=== PATIENT | female | born 1950 | race Caucasian/White ===

== ENCOUNTER 2023-12-31 13:18 | Inpatient (IN) | payer MEDICARE, BC ==
[~2023-12-31] VITALS: Ht 165.1 cm; Wt 59.0 kg
[2023-12-31 16:00] VITALS: BP 114/74; TEMP 97.9; O2SAT 98
[2023-12-31] MEDS ORDERED: MAG HYDROX/AL HYDROX/SIMETH 30 ML UDC PO PRN (16:30)
[2023-12-31] MEDS ORDERED: clonazePAM 0.5 MG TABLET PO PRN (16:30)
[2023-12-31] MEDS ORDERED: MAGNESIUM HYDROXIDE 30 ML UDC PO PRN (16:30)
[2023-12-31] MEDS ORDERED: ATOR20TA PO (16:49)
[2023-12-31] MEDS ORDERED: CHOL400T PO (16:49)
[2023-12-31] MEDS ORDERED: PROP80TA4 PO (16:49)
[2023-12-31] MEDS ORDERED: MULT-213 PO (16:49)
[2023-12-31] MEDS ORDERED: OXYB10TA30 PO (16:49)
[2023-12-31] MEDS ORDERED: L.AC1CAP6 PO (16:49)
[2023-12-31] MEDS: BLOOD SUGAR DIAGNOSTIC 1 EACH STRIP IN ONE (17:23)
[2023-12-31] MEDS: CHLORDIAZEPOXIDE HCL 25 MG CAPSULE PO SCH (19:56)
[2023-12-31] MEDS: ACETAMINOPHEN 325 MG TABLET PO PRN (19:57)
[2023-12-31 20:47] VITALS: BP 99/62; TEMP 97.8; O2SAT 98
[2024-01-01 07:21] LABS: CALCIUM, SERUM 8.6 mg/dL (8.5-10.1); CARBON DIOXIDE 27 mmol/L (21-32); CHLORIDE 107 mmol/L (98-107); CREATININE 0.8 mg/dL (0.6-1.3); GLUCOSE 100 mg/dL (74-106); POTASSIUM 4.2 mmol/L (3.5-5.1); SODIUM SERUM 141 mmol/L (136-145); UREA NITROGEN, BLOOD 15 mg/dL (7-18)
[2024-01-01 07:26] LABS: ALANINE AMINOTRANSFERASE 24 U/L (12-78); ALBUMIN 2.8 g/dL (3.4-5.0); ALKALINE PHOSPHATASE 81 U/L (46-116); ASPARTATE AMINOTRANSFERASE 21 U/L (15-37); BILIRUBIN,TOTAL 0.4 mg/dL (0.2-1.0); TOTAL PROTEIN, SERUM 6.4 g/dL (6.4-8.2)
[2024-01-01 07:27] LABS: ALCOHOL, BLOOD < 3 mg/dL (0-10); CHOLESTEROL 115 mg/dL (<200); HDL CHOLESTEROL 59 mg/dL (40-60); LDL 41 mg/dL (0-99); TRIGLYCERIDES 71 mg/dL (30-150)
[2024-01-01 07:29] LABS: CREATININE 0.8 mg/dL (0.6-1.3)
[2024-01-01 07:57] LABS: BASOPHILS # (AUTO) 0.1 K/uL (0.0-0.2); BASOPHILS % (AUTO) 1.3 % (0.0-2.0); EOSINOPHILS # (AUTO) 0.3 K/uL (0.0-0.7); EOSINOPHILS % (AUTO) 6.3 % (0.0-6.0); HEMATOCRIT 32 % (33-45); HEMOGLOBIN 10.7 g/dL (11.5-14.8); LYMPHOCYTES # (AUTO) 1.1 K/uL (0.8-4.8); LYMPHOCYTES % (AUTO) 23.9 % (20.0-44.0); MEAN CORPUSCULAR HEMOGLOBIN 32 PG (26.0-33.0); MEAN CORPUSCULAR HGB CONC 33 g/dl (31.0-36.0); MEAN CORPUSCULAR VOLUME 98 fL (82-100); MONOCYTES # (AUTO) 0.6 K/uL (0.1-1.30); MONOCYTES % (AUTO) 13.5 % (2.0-12.0); NEUTROPHILS # (AUTO) 2.6 K/uL (1.8-8.9); PLATELET COUNT (AUTO) 297 K/uL (150-450); RED BLOOD CELL COUNT(AUTO) 3.31 MIL/uL (4.0-5.2); RED CELL DISTRIBUTION WIDTH 17.9 % (11.5-15.0); WHITE BLOOD COUNT (AUTO) 4.7 K/uL (4.3-11.0)
[2024-01-01 08:00] VITALS: BP 105/66; TEMP 97.9; O2SAT 96
[2024-01-01] MEDS: ATORVASTATIN 10 MG TABLET PO SCH (08:28)
[2024-01-01] MEDS: PROPRANOLOL HCL 40 MG TABLET PO SCH (08:33)
[2024-01-01] MEDS: ESCITALOPRAM OXALATE (10 MG) 10 MG TABLET PO SCH (09:00)
[2024-01-01] MEDS: risperiDONE 1 MG TABLET PO SCH (09:00)
[2024-01-01] MEDS: NICOTINE PATCH (14MG) 14 MG PATCH.TD24 TD SCH (12:33)
[2024-01-01 16:23] VITALS: BP_SYST 105; BP_SYST 108; BP_DIAS 66; BP_DIAS 74; TEMP 98.1; O2SAT 95; O2SAT 96
[2024-01-01 20:00] VITALS: BP 103/70; TEMP 97.9; O2SAT 96
[2024-01-02 08:11] VITALS: BP 111/72; TEMP 97.9; O2SAT 98
[2024-01-02 16:08] VITALS: BP 92/70; TEMP 97.6; O2SAT 98
[2024-01-02 20:00] VITALS: BP 112/69; TEMP 98.1; O2SAT 98
[2024-01-03 08:00] VITALS: BP 104/74; TEMP 98.6; O2SAT 98
[2024-01-03 16:00] VITALS: BP 115/76; TEMP 98; O2SAT 98
[2024-01-03 20:00] VITALS: BP 108/77; TEMP 98.3; O2SAT 99
[2024-01-04 08:00] VITALS: BP 110/77; TEMP 98.6; O2SAT 96
[2024-01-04 16:00] VITALS: BP 105/68; TEMP 98.2; O2SAT 97
[2024-01-04 20:00] VITALS: BP 96/68; TEMP 98.3; O2SAT 97
[2024-01-05 08:00] VITALS: BP 113/67; TEMP 98.1; O2SAT 97
[2024-01-05 16:00] VITALS: BP 100/66; TEMP 98.1; O2SAT 95
[2024-01-05 20:47] VITALS: BP 96/63; TEMP 98.2; O2SAT 95
[2024-01-06 08:00] VITALS: BP 98/69; TEMP 97.8; O2SAT 96
[2024-01-06 16:00] VITALS: BP 120/72; TEMP 97.8; O2SAT 98
[2024-01-06 20:00] VITALS: BP 105/75; TEMP 98; O2SAT 98
[2024-01-06] MEDS: risperiDONE 0.25 MG TABLET PO SCH (20:17)
[2024-01-07 08:00] VITALS: BP 100/61; TEMP 98; O2SAT 96
[2024-01-07] MEDS ORDERED: MAGNESIUM CITRATE 296 ML BOTTLE PO ONE (15:30)
[2024-01-07 16:00] VITALS: BP 112/82; TEMP 98.8; O2SAT 100
[2024-01-07] MEDS: PEG 3350/NA SULF,BICARB,CL/KCL 4,000 ML BOTTLE PO ONE (16:07)
[2024-01-07 20:31] VITALS: BP 114/84; TEMP 98.2; O2SAT 100
[2024-01-08 08:00] VITALS: BP 126/73; TEMP 98.2; O2SAT 97
[2024-01-08 16:00] VITALS: BP 127/71; TEMP 98.6; O2SAT 99
[2024-01-08 20:00] VITALS: BP 93/61; TEMP 98.4; O2SAT 97
[2024-01-09 08:00] VITALS: BP 123/69; TEMP 97.7; O2SAT 96
[2024-01-09 16:00] VITALS: BP 120/73; TEMP 98.8; O2SAT 98
[2024-01-09 20:00] VITALS: BP 101/65; TEMP 98.5; O2SAT 97
[2024-01-10 08:00] VITALS: BP 120/78; TEMP 97.9; O2SAT 98
[2024-01-10 16:00] VITALS: BP 119/99; TEMP 97.6; O2SAT 98
[2024-01-10 20:00] VITALS: BP 110/72; TEMP 98; O2SAT 98
[2024-01-11 08:00] VITALS: BP 101/66; TEMP 97.9; O2SAT 97
[2024-01-11 16:00] VITALS: BP 97/63; TEMP 97.7; O2SAT 96
[2024-01-11 20:19] VITALS: BP 96/62; TEMP 97.9; O2SAT 95
[2024-01-12] MEDS: TEMAZEPAM 15 MG CAPSULE PO PRN (01:19)
[2024-01-12 08:00] VITALS: BP 100/72; TEMP 97.8; O2SAT 100
[2024-01-12 16:00] VITALS: BP 107/64; TEMP 97.8; O2SAT 96
[2024-01-12 20:19] VITALS: BP 101/66; TEMP 98.4; O2SAT 97
[2024-01-13 08:00] VITALS: BP 115/85; TEMP 98.1; O2SAT 98
[2024-01-13 16:00] VITALS: BP 101/65; TEMP 97.5; O2SAT 95
[2024-01-13 21:06] VITALS: BP 99/67; TEMP 98.1; O2SAT 97
[2024-01-14 08:00] VITALS: BP 102/78; TEMP 97.9; O2SAT 98
[2024-01-14 08:31] VITALS: BP 102/78
== END 2024-01-14 14:25 | DRG 641 ==
LOC: GPS 15:25
PROVIDERS: ADMIT Psychiatry & Neurology Psychiatry; ATTEND Nurse Practitioner Acute Care
DX: E44.0 Moderate protein-calorie malnutrition (principal); K50.90 Crohn's disease, unspecified, without complications; F39 Unspecified mood [affective] disorder; F29 Unspecified psychosis not due to a substance or known physiological condition; E78.5 Hyperlipidemia, unspecified; E88.09 Other disorders of plasma-protein metabolism, not elsewhere classified; D64.9 Anemia, unspecified; E11.9 Type 2 diabetes mellitus without complications; F10.21 Alcohol dependence, in remission; T18.5XXA Foreign body in anus and rectum, initial encounter; W44.8XXA Other foreign body entering into or through a natural orifice, initial encounter; Y93.9 Activity, unspecified; Y92.89 Other specified places as the place of occurrence of the external cause; Z79.899 Other long term (current) drug therapy; R33.9 Retention of urine, unspecified; K56.41 Fecal impaction; G31.84 Mild cognitive impairment of uncertain or unknown etiology
CPT/HCPCS: 36415; 72192-TC; 74018; 80048-TC; 80053-TC; 80061-TC; 82565-TC; 82962-TC; 85025-TC; G0480